=== PATIENT | female | born 1960 | race Caucasian/White ===

== ENCOUNTER 2018-11-06 10:56 | Emergency (ER) | payer MEDICAID ==
[2018-11-06] MEDS ORDERED: ASPIRIN 81 MG TABLET, CHEWABLE PO ONE (11:36)
--- NOTE | 2018-11-06 11:39 | ER Document Report ---
ED Medical Screen (RME) - General Chief Complaint: Productive Cough Stated Complaint: SHORTNESS OF BREATH Time Seen by Provider: 11/06/18 11:36 Primary Care Provider: NADINE BORREGO MD [Primary Care Provider] - Follow up as needed Mode of Arrival: Ambulatory Information source: Patient, Relative Notes: This is a 58-year-old female with a history of coronary artery disease, epilepsy, dyslipidemia who reports a 10-day illness with fever, fatigue, cough and diarrhea. Patient states she has had a 10 pound weight loss during that time. She presents with left-sided chest wall pain exacerbated by coughing. TRAVEL OUTSIDE OF THE [place] IN LAST 30 DAYS: No - Related Data Allergies/Adverse Reactions: strawberry Allergy (Severe, Verified 07/29/17 08:23) Anaphylaxis No Known Drug Allergies Allergy (Verified 07/29/17 08:23) Past Medical History Neurological Medical History: Reports: Hx Seizures Renal/ Medical History: Denies: Hx Peritoneal Dialysis Musculoskeltal Medical History: Reports Hx Arthritis Past Surgical History: Reports: Hx Breast Surgery - left breast biopsy, Hx Cardiac Surgery - stents 2006, Hx Hysterectomy Physical Exam - Vital signs Vitals: Temp Pulse Resp BP Pulse Ox 97.6 F 94 17 97/55 L 94 11/06/18 11:11 11/06/18 11:11 11/06/18 11:11 11/06/18 11:11 11/06/18 11:11 Course - Vital Signs Vital signs: Temp Pulse Resp BP Pulse Ox 97.6 F 94 17 97/55 L 94 11/06/18 11:11 11/06/18 11:11 11/06/18 11:11 11/06/18 11:11 11/06/18 11:11 Doctor's Discharge - Discharge Referrals: NADINE BORREGO MD [Primary Care Provider] - Follow up as needed
[2018-11-06 12:29] LABS: ABSOLUTE LYMPHOCYTES (AUTO) 1.4 10^3/uL (0.5-4.7); ABSOLUTE MONOCYTES (AUTO) 0.5 10^3/uL (0.1-1.4); ABSOLUTE NEUT (AUTO) 8.2 10^3/uL (1.7-8.2); BASOPHILS % (AUTO) 0.1 % (0-2); HEMATOCRIT 39.5 % (36.0-47.0); HEMOGLOBIN 14.1 g/dL (12.0-15.5); LYMPHOCYTES % (AUTO) 13.8 % (13-45); MEAN CORPUSCULAR HEMOGLOBIN 32.6 pg (27.0-33.4); MEAN CORPUSCULAR HGB CONC 35.8 g/dL (32.0-36.0); MEAN CORPUSCULAR VOLUME 91 fl (80-97); MONOCYTES % (AUTO) 5.2 % (3-13); PLATELET COUNT 110 10^3/uL (150-450); RED BLOOD COUNT 4.35 10^6/uL (3.72-5.28); RED CELL DISTRIBUTION WIDTH 12.2 % (11.5-14.0); SEGMENTED NEUTROPHILS % (AUTO) 80.9 % (42-78); TOTAL CELLS COUNTED % (AUTO) 100 %; WHITE BLOOD COUNT 10.1 10^3/uL (4.0-10.5)
--- NOTE | 2018-11-06 12:30 | RADIOLOGY REPORT (SQ) ---
EXAM DESCRIPTION: CHEST SINGLE VIEW COMPLETED DATE/TIME: 11/06/2018 12:16 pm REASON FOR STUDY: cough, sob COMPARISON: None. EXAM PARAMETERS: NUMBER OF VIEWS: One view. TECHNIQUE: Single frontal radiographic view of the chest acquired. RADIATION DOSE: NA LIMITATIONS: None. FINDINGS: LUNGS AND PLEURA: Emphysematous change with hyperinflation. No focal consolidation. No p leural effusion or pneumothorax. MEDIASTINUM AND HILAR STRUCTURES: No masses. Contour normal. HEART AND VASCULAR STRUCTURES: Normal heart size. Atherosclerotic aorta. BONES: No acute findings. HARDWARE: None in the chest. OTHER: No other significant finding. IMPRESSION: Hyperinflation without evidence of acute cardiopulmonary process. TECHNICAL DOCUMENTATION: JOB ID: [id number] [employer]- All Rights Reserved Reading location - IP/workstation name: [email or web address]
[2018-11-06 12:49] LABS: ALANINE AMINOTRANSFERASE 48 U/L (9-52); ALBUMIN 4.3 g/dL (3.5-5.0); ALKALINE PHOSPHATASE 121 U/L (38-126); ANION GAP 15 (5-19); ASPARTATE AMINO TRANSFERASE 58 U/L (14-36); BILIRUBIN,DIRECT 0.4 mg/dL (0.0-0.4); BILIRUBIN,TOTAL 0.7 mg/dL (0.2-1.3); BLOOD UREA NITROGEN 6 mg/dL (7-20); CALCIUM 9.1 mg/dL (8.4-10.2); CARBON DIOXIDE 30 mmol/L (22-30); CHLORIDE 91 mmol/L (98-107); CREATINE KINASE 91 U/L (30-135); GLUCOSE 111 mg/dL (75-110); SODIUM 135.6 mmol/L (137-145); TOTAL PROTEIN 6.8 g/dL (6.3-8.2)
[2018-11-06 12:56] LABS: POTASSIUM 2.6 mmol/L (3.6-5.0)
[2018-11-06 13:01] LABS: CREATINE KINASE MB 0.47 ng/mL (<4.55); TROPONIN I < 0.012 ng/mL
[2018-11-06] MEDS ORDERED: KETOROLAC TROMETHAMINE INJ/PF 30 MG/1 ML SDV IV ONE (13:10)
[2018-11-06] MEDS ORDERED: LIDOCAINE 5% (700 MG) TRANSDERMAL ADH..PATCH TP ONE (13:10)
[2018-11-06] MEDS ORDERED: LIDOCAINE 1% INJ-PF (10 MG/ML) 30 ML SDV NEB ONE (13:10)
[2018-11-06] MEDS ORDERED: IPRATROPIUM/ALBUTEROL 0.5-2.5 MG/3 ML AMPUL NEB ONE (13:10)
[2018-11-06] MEDS ORDERED: POTASSI CL 20 MEQ/50 ML RIDER 20 MEQ/50 ML RTUPB IV ONE ×2 (13:11→14:28)
[2018-11-06] MEDS ORDERED: RINGERS SOLUTION,LACTATED 1,000 ML IV ONE (13:11)
[2018-11-06] MEDS ORDERED: MAGNESIUM SULFATE/D5W 1 GM/100 ML RTUPB IV ONE (13:12)
[2018-11-06] MEDS ORDERED: ONDANSETRON HCL INJ/PF 4 MG/2 ML SDV IV ONE (13:12)
[2018-11-06 13:41] LABS: A TYPE INFLUENZA AG NEGATIVE (NEGATIVE); B INFLUENZA AG NEGATIVE (NEGATIVE)
[2018-11-06] MEDS ORDERED: PHENYTOIN SODIUM EXTENDED 100 MG CAPSULE PO ONE ×2 (14:28→16:09)
[2018-11-06] MEDS ORDERED: POTASSIUM CHLORIDE 20 MEQ/15 ML UDCUP PO ONE (14:29)
[2018-11-06] MEDS ORDERED: AZITHROMYCIN 250 MG TABLET PO ONE (14:29)
--- NOTE | 2018-11-06 16:08 | ER Document Report ---
ED General - General Chief Complaint: Productive Cough Stated Complaint: SHORTNESS OF BREATH Time Seen by Provider: 11/06/18 11:36 Primary Care Provider: NADINE BORREGO MD [NO LOCAL MD] - Follow up as needed Mode of Arrival: Ambulatory TRAVEL OUTSIDE OF THE [place] IN LAST 30 DAYS: No - HPI Patient complains to provider of: Shortness of breath cough nausea vomiting diarrhea Notes: Patient coming in for the above-stated symptoms. Patient was evaluated by in triage notes provided below This is a 58-year-old female with a history of coronary artery disease, epilepsy, dyslipidemia who reports a 10-day illness with fever, fatigue, cough and diarrhea. Patient states she has had a 10 pound weight loss during that time. She presents with left-sided chest wall pain exacerbated by coughing. Patient agrees with above states that since patient states she was able to tolerate spaghetti yesterday. Patient is concerned she may have pneumonia patient states she did receive a flu shot and also concerned she did not take her Dilantin today. Patient otherwise denies any seizure activity. Patient states most of her issues is that she feels short of breath and has significant pain in the left side of her chest whenever she is coughing. No trauma no recent antibiotics patient states fever approximately 4 days ago however no fever since that time - Related Data Allergies/Adverse Reactions: strawberry Allergy (Severe, Verified 07/29/17 08:23) Anaphylaxis No Known Drug Allergies Allergy (Verified 07/29/17 08:23) Past Medical History - General Information source: Patient, Relative - Social History Smoking Status: Current Some Day Smoker Family History: Reviewed & Not Pertinent Patient has suicidal ideation: No Patient has homicidal ideation: No Neurological Medical History: Reports: Hx Seizures Renal/ Medical History: Denies: Hx Peritoneal Dialysis Musculoskeletal Medical History: Reports Hx Arthritis Past Surgical History: Reports: Hx Breast Surgery - left breast biopsy, Hx Cardiac Surgery - stents 2006, Hx Hysterectomy Review of Systems - Review of Systems Constitutional: No symptoms reported EENT: No symptoms reported Cardiovascular: Chest pain - Left chest wall pain Respiratory: Short of breath, Sputum Gastrointestinal: Diarrhea, Nausea, Vomiting Genitourinary: No symptoms reported Female Genitourinary: No symptoms reported Musculoskeletal: No symptoms reported Skin: No symptoms reported Hematologic/Lymphatic: No symptoms reported Neurological/Psychological: No symptoms reported -: Yes All other systems reviewed and negative Physical Exam - Vital signs Vitals: Temp Pulse Resp BP Pulse Ox 97.6 F 94 17 97/55 L 94 11/06/18 11:11 11/06/18 11:11 11/06/18 11:11 11/06/18 11:11 11/06/18 11:11 Interpretation: Normal - General General appearance: Appears well, Alert - HEENT Head: Normocephalic, Atraumatic Eyes: Normal Pupils: PERRL - Respiratory Respiratory status: No respiratory distress Chest status: Tender - Palpation left chest wall does reproduce the patient's pain Breath sounds: Normal Chest palpation: Normal - Cardiovascular Rhythm: Regular Heart sounds: Normal auscultation Murmur: No - Abdominal Inspection: Normal Distension: No distension Bowel sounds: Normal Tenderness: Nontender Organomegaly: No organomegaly - Back Back: Normal, Nontender - Extremities General upper extremity: Normal inspection, Nontender, Normal color, Normal ROM, Normal temperature General lower extremity: Normal inspection, Nontender, Normal color, Normal ROM, Normal temperature, Normal weight bearing. No: Tariq's sign - Neurological Neuro grossly intact: Yes Cognition: Normal Orientation: AAOx4 [place] Coma Scale Eye Opening: Spontaneous [place] Coma Scale Verbal: Oriented [place] Coma Scale Motor: Obeys Commands R[place]ki Coma Scale Total: 15 Speech: Normal Motor strength normal: LUE, RUE, LLE, RLE Sensory: Normal - Psychological Associated symptoms: Normal affect, Normal mood - Skin Skin Temperature: Warm Skin Moisture: Dry Skin Color: Normal Course - Re-evaluation Re-evalutation: 11/06/18 16:09 Patient coming in for nausea vomiting cough left chest wall pain with coughing. After studies shows hypokalemia no EKG changes patient was able to tolerate p.o. and also was given a dose of potassium IV. Possible underlying bronchitis symptoms ongoing for 10 days we will start the patient on azithromycin and Reglan for nausea vomiting patient recommended a bland diet patient states that she has been able to tolerate positive at home. Patient feeling better after IV fluids and IV potassium will discharge patient home to follow-up with PCP Friday. Patient agrees with this plan - Vital Signs Vital signs: Temp Pulse Resp BP Pulse Ox 97.6 F 94 20 113/73 91 L 11/06/18 11:11 11/06/18 11:11 11/06/18 12:20 11/06/18 12:20 11/06/18 12:24 - Laboratory Result Diagrams: 11/06/18 12:20 11/06/18 12:20 Laboratory results interpreted by me: 11/06/18 11/06/18 11/06/18 12:20 12:20 14:30 Plt Count 110 L Seg Neutrophils % 80.9 H Sodium 135.6 L Potassium 2.6 L* Chloride 91 L BUN 6 L Glucose 111 H AST 58 H Phenytoin 5.4 L Discharge - Discharge Clinical Impression: Bronchitis, Hypokalemia, Chest wall pain Diarrhea Qualifiers: Diarrhea type: unspecified type Qualified Code(s): R19.7 - Diarrhea, unspecified Condition: Good Instructions: Anti-Inflammatory Medication ([facility]), Azithromycin ([facility]), Bronchitis ([facility]), Diarrhea, Nonspecific ([facility]), Hypokalemia ([facility]) Additional Instructions: Your evaluation today shows no signs of pneumonia your laboratory studies do show signs of a low potassium likely due to your diarrhea this was replaced here in ER. Please continue to take the azithromycin for underlying bronchitis. Please take the Reglan as prescribed for nausea vomiting please take Mucinex [id number] would recommend following up with your primary care physician in the next 4-5 days return to ER symptoms are worsening. Please make sure you drink plenty of fluids to stay well-hydrated. Prescriptions: Azithromycin [Zithromax] 250 mg PO DAILY #4 tablet Metoclopramide HCl [Reglan] 5 mg PO Q6 #30 tablet Referrals: NADINE BORREGO MD [NO LOCAL MD] - Follow up as needed
[2018-11-06 17:16] VITALS: BP 101/51
--- NOTE | 2018-11-06 21:22 | EKG REPORT ---
SEVERITY:- ABNORMAL ECG - SINUS RHYTHM BORDERLINE LEFT AXIS DEVIATION CONSIDER INFERIOR INFARCT ABNRM R PROG, CONSIDER ASMI OR LEAD PLACEMENT : Confirmed by: Mae Webster MD 06-Nov-2018 21:20:59
== END 2018-11-06 17:18 | disposition home or self-care (01) ==
LOC: ER 10:56
DX: J40 Bronchitis, not specified as acute or chronic (principal); E87.6 Hypokalemia; R05 Cough; R07.89 Other chest pain; R06.02 Shortness of breath; R11.2 Nausea with vomiting, unspecified; R19.7 Diarrhea, unspecified; I25.10 Atherosclerotic heart disease of native coronary artery without angina pectoris; R50.9 Fever, unspecified; R53.83 Other fatigue; R63.4 Abnormal weight loss; F17.200 Nicotine dependence, unspecified, uncomplicated; G40.909 Epilepsy, unspecified, not intractable, without status epilepticus; Z79.899 Other long term (current) drug therapy; Z87.892 Personal history of anaphylaxis; Z91.018 Allergy to other foods; Z95.5 Presence of coronary angioplasty implant and graft
CPT/HCPCS: 93005; 36415; 82553; 82550; 83735; 80185; 85025; 80053; 84484; 87804; 71045; 93010; Q0144; J3490 ×4; J1885; J3475; J2405; J3480; J7120; J7620

== ENCOUNTER 2020-05-21 13:12 | Emergency (ER) | payer MEDICAID ==
[2020-05-21] MEDS ORDERED: IBUPROFEN 600 MG TABLET PO ONE (13:27)
--- NOTE | 2020-05-21 13:33 | ER Document Report ---
ED Hand/Wrist Injury - General Chief Complaint: Wrist Pain Stated Complaint: FALL/WRIST PAIN Time Seen by Provider: 05/21/20 13:25 Primary Care Provider: MATT SWAIN DO [ACTIVE STAFF] - Follow up tomorrow Mode of Arrival: Wheelchair Information source: Patient Notes: 59-year-old female presents to ED for complaint of pain to her left hand wrist forearm and thigh. She states she went outside and stepped in a hole falling backwards landing on her outstretched arm. She does have deformity to the wrist. She also has some pain in the left thigh. She states she does not know if it is broken or not but it is very painful. Patient is alert oriented respirations regular nonlabored speaking in full sentences. REVIEW OF SYSTEMS: CONSTITUTIONAL : Denies fever, chills, or sweats. Denies recent illness. MUSCULOSKELETAL: Pain swelling decreased range of motion to the left wrist and hand pain and swelling to the left arm patient fell in a hole on landed on her outstretched arm pain to the left thigh she also landed on the left thigh. SKIN: Denies rash or skin lesions. HEMATOLOGIC : Denies easy bruising or bleeding. LYMPHATIC: Denies swollen, enlarged glands. NEUROLOGICAL: Denies altered mental status or loss of consciousness. Denies headache. Denies weakness or paralysis or loss of use of either side. Denies problems with gait or speech. Denies sensory or motor loss. PSYCHIATRIC: Denies anxiety or stress or depression. ALL OTHER SYSTEMS REVIEWED AND NEGATIVE. VITAL SIGNS: Within normal limits. GENERAL: Patient is in a lot of pain due to the fall, non-toxic appearance. CHEST: Clear breath sounds bilaterally. No wheezes, rales, or rhonchi. CARDIAC: Regular rate and rhythm. S1 and S2, without murmurs, gallops, or rubs.. MUSCULOSKELETAL: Left hand wrist and forearm are very tender to palpation. They are very bruised and swollen. She is very hesitant to move the index finger or the wrist due to pain. She states that extremely painful to move the wrist at all. She does have bruising to the wrist and hand. Patient also has tenderness to palpation to the left thigh. She states she has full range of motion to the hip but the thigh is very tender NEUROLOGICAL: Alert and oriented x 3. No focal sensory or strength deficits. Speech normal. Follows commands appropriately. PSYCHIATRIC: Normal Affect, judgement and mood. SKIN: Normal appearance with no rashes or lesions. TRAVEL OUTSIDE OF THE [place] IN LAST 30 DAYS: No - HPI Injury to: Forearm, Hand, Wrist - And left thigh Onset: Just prior to arrival Where: Home, Outdoors Timing: Still present Quality of pain: Sharp, Throbbing Severity: Moderate Pain Level: 4 Context: Fall - Formerly, Swelling, Other - Related Data Allergies/Adverse Reactions: strawberry Allergy (Severe, Verified 05/21/20 13:27) Anaphylaxis No Known Drug Allergies Allergy (Verified 05/21/20 13:27) Past Medical History - General Information source: Patient - Social History Smoking Status: Never Smoker Frequency of alcohol use: None Drug Abuse: None Lives with: Family Family History: Reviewed & Not Pertinent Patient has homicidal ideation: No - Past Medical History Cardiac Medical History: Reports: Hx Coronary Artery Disease, Hx Hypercholesterolemia, Hx Hypertension, Other - Patent foramen ovale Pulmonary Medical History: Reports: None Neurological Medical History: Reports: Hx Seizures, Other - Vertigo Endocrine Medical History: Reports: None Renal/ Medical History: Reports: Other - Endometriosis Malignancy Medical History: Reports: None GI Medical History: Reports: Hx Ulcer, Hx Colonoscopy Musculoskeletal Medical History: Reports Hx Arthritis, Reports Hx Musculoskeletal Deformity, Reports Hx Musculoskeletal Trauma Skin Medical History: Reports None Psychiatric Medical History: Reports: None Traumatic Medical History: Reports: None Past Surgical History: Reports: Hx Abdominal Surgery - 3/4 of stomach removed due to ulcers, Hx Breast Surgery - left breast biopsy, Hx Cardiac Surgery - stents 2006, Hx Hysterectomy, Hx Urinary Tract Surgery - Stents in right femoral artery, Hx Vascular Surgery - Immunizations Immunizations up to date: Yes Hx Diphtheria, Pertussis, Tetanus Vaccination: Yes Physical Exam - Vital signs Vitals: Temp Pulse Resp BP Pulse Ox 98.1 F 93 20 147/66 H 97 05/21/20 13:15 05/21/20 13:15 05/21/20 13:15 05/21/20 13:15 05/21/20 13:15 Course - Re-evaluation Re-evalutation: 05/22/20 01:31 X-rays discussed with patient written report of x-rays given to patient. Patient was instructed to please follow-up with her primary care and orthopedics due to the fracture to the distal radius. Patient was treated with a sugar tong splint and sling. Patient was instructed not to wear the sling at night but to keep the wrist elevated to reduce pain and swelling. Patient verbalized understanding and agreement with treatment plan patient was discharged home. - Vital Signs Vital signs: Temp Pulse Resp BP Pulse Ox 98.0 F 64 16 120/71 100 05/21/20 15:59 05/21/20 15:59 05/21/20 15:59 05/21/20 15:59 05/21/20 15:59 - Diagnostic Test Radiology reviewed: Image reviewed, Reports reviewed Procedures - Immobilization Left Wrist Time completed: 15:30 Pre-Proc Neuro Vasc Exam: Normal Immobilizer type: Sugar tong, Sling Performed by: PCT Post-Proc Neuro Vasc Exam: Unchanged from pre-exam Alignment checked and good: Yes Discharge - Discharge Clinical Impression: comminuted fracture distal radius Condition: Stable Disposition: HOME, SELF-CARE Additional Instructions: Fractured Radius you have a comminuted fracture that is nondisplaced intra- articular of the distal left radius. The bone called the radius is fractured. This type of fracture is typically caused by falling onto the outstretched hand. The fracture is not serious, however, and should heal well with adequate protection. Your physician's evaluation shows the bone is in good position to heal. A cast or splint is used to protect the fracture. For the first few days after the injury, the arm should be elevated and ice packed. Healing takes from three to eight weeks, depending on the age of the patient and the seriousness of the fracture. Your doctor has explained the treatment plan. It's important that you follow up as instructed to prevent complications. Call the doctor or return at once if severe pain or swelling occur, or if the hand becomes numb, swollen, or discolored. Oral Narcotic Medication You have been given a "[place] dispense pack for pain control. This medication is a narcotic. It's best taken with food, as nausea can result if taken on an empty stomach. Don't operate machinery or drive within six hours of taking this medication. Do not combine this medicine with alcohol, or with any medication which can cause sedation (such as cold tablets or sleeping pills) unless you get permission from the physician. Narcotics tend to cause constipation. If possible, drink plenty of fluids and eat a diet high in fiber and fruits. Ice & Elevation Apply ice packs frequently against the painful area. Many different schedules are recommended, such as "20 minutes on, 20 minutes off" or "one hour ice, two hours rest." If you need to work, you may need to go longer between ice treatments. You should plan to have the area ice packed AT LEAST one-fourth of the time. The ice should be applied over the wrap, tape, or splint, or over a layer of cloth -- not directly against the skin. Some ice bags have a built-in cloth and can be put directly on the skin. Your injured part should be elevated as much as possible over the next 48 hours. Try to keep the injury above the level of the heart. Avoid use of the injured area. Elevation and rest will decrease the swelling. Had a splint placed to immobilize the wrist until you see orthopedics tomorrow. You will need further treatment. Please do not remove the splint before you see orthopedics. Please do not get your splint wet before you see orthopedics tomorrow. Please do not wear the sling to bed. The sling is to support the weight of the splint. Please when sitting or lying elevate the wrist above your heart and remove the sling. FOLLOW-UP CARE: If you have been referred to a physician for follow-up care, call the physicians office for an appointment as you were instructed or within the next two days. If you experience worsening or a significant change in your symptoms, notify the physician immediately or return to the Emergency Department at any time for re-evaluation. Forms: Elevated Blood Pressure, Smoking Cessation Education Referrals: MATT SWAIN DO [ACTIVE STAFF] - Follow up tomorrow
--- NOTE | 2020-05-21 14:30 | RADIOLOGY REPORT (SQ) ---
EXAM DESCRIPTION: FOREARM LEFT COMPLETED DATE/TIME: 05/21/2020 1:57 pm REASON FOR STUDY: Fall pain injury decreased range of motion to the COMPARISON: None. NUMBER OF VIEWS: Two views. TECHNIQUE: Two radiographic images acquired of the left forearm, including elbow and wrist in at [address] one projection. LIMITATIONS: None. FINDINGS: MINERALIZATION: Normal. BONES: Nondisplaced comminuted fracture of the distal radial metadiaphysis is present with extension to the articular surface SOFT TISSUES: No obvious swelling or foreign body. OTHER: No other significant finding. IMPRESSION: Comminuted intra-articular fracture of the distal radius. TECHNICAL DOCUMENTATION: JOB ID: [id number] 2010 [employer]- All Rights Reserved Reading location - IP/workstation name: [email or web address]
--- NOTE | 2020-05-21 14:31 | RADIOLOGY REPORT (SQ) ---
EXAM DESCRIPTION: HAND LEFT 3 VIEWS IMAGES COMPLETED DATE/TIME: 05/21/2020 1:57 pm REASON FOR STUDY: Fall pain injury decreased range of motion to the COMPARISON: None. EXAM PARAMETERS: NUMBER OF VIEWS: Three views. TECHNIQUE: AP, lateral and oblique radiographic images acquired of the left hand. LIMITATIONS: None. FINDINGS: MINERALIZATION: Normal. BONES: Comminuted intra-articular nondisplaced fracture of the distal radius is present. No addition al fracture in the hand. JOINTS: No effusions. SOFT TISSUES: No soft tissue swelling. No foreign body. OTHER: No other significant finding. IMPRESSION: Comminuted nondisplaced intra-articular fracture of the distal left radius. No addition al fracture in the hand. TECHNICAL DOCUMENTATION: JOB ID: [id number] 2010 [employer]- All Rights Reserved Reading location - IP/workstation name: [email or web address]
--- NOTE | 2020-05-21 14:32 | RADIOLOGY REPORT (SQ) ---
EXAM DESCRIPTION: FEMUR LEFT IMAGES COMPLETED DATE/TIME: 05/21/2020 1:57 pm REASON FOR STUDY: fall pain injury COMPARISON: None. NUMBER OF VIEWS: Two views. TECHNIQUE: Two radiographic images acquired of the left femur to include hip and knee in at least on e projection. LIMITATIONS: None. FINDINGS: MINERALIZATION: Normal. BONES: No acute fracture. No worrisome bone lesions. SOFT TISSUES: No obvious swelling or foreign body. Vascular calcifications are present in the soft t issues. OTHER: No other significant finding. IMPRESSION: NEGATIVE STUDY OF THE LEFT FEMUR. NO RADIOGRAPHIC EVIDENCE OF ACUTE INJURY. TECHNICAL DOCUMENTATION: JOB ID: [id number] 2010 [employer]- All Rights Reserved Reading location - IP/workstation name: [email or web address]
[2020-05-21] MEDS ORDERED: HYDROCODONE/ACETAMINOPHEN 5-325 MG (6 TAB/ER DISP) PO PRN (15:24)
[2020-05-21 16:01] VITALS: BP 120/71
== END 2020-05-21 15:59 | disposition home or self-care (01) ==
LOC: ER 13:12
PROC: 2W3DX1Z Immobilization of Left Lower Arm using Splint (ICD-10-PCS; principal; 2020-05-21)
DX: S52.502A Unspecified fracture of the lower end of left radius, initial encounter for closed fracture (principal); M79.642 Pain in left hand; M25.532 Pain in left wrist; M79.652 Pain in left thigh; M79.89 Other specified soft tissue disorders; W17.2XXA Fall into hole, initial encounter; I25.10 Atherosclerotic heart disease of native coronary artery without angina pectoris; I10 Essential (primary) hypertension
CPT/HCPCS: 29125; 99284; 73552; 73090; 73130; J3490